=== PATIENT | male | born 1950 | race Caucasian/White ===

== ENCOUNTER → 2020-10-09 | Outpatient (CLI) | payer MEDICARE, OTHER ==
[~2020-10-09] MED LIST: ATEN50 PO; CYCL10 PO; FLUSAL2505 IH; GABA600 PO; LEVE500 PO; LORA.5 PO; LOVA40; TAMS.4ER PO; TIOT18 IH; VALS80 PO
[2020-10-09 18:35] LABS: Microalb/Creat Ratio UR, Rand Unable to Calculate mg/g (0.000-30.000); Microalbumin, Random Urine <5.000 mg/L (0.000-20.000)
== END ==
LOC: LAB 15:19 → LAB SHORT 15:19
PROVIDERS: Physician Assistant
DX: E11.9 Type 2 diabetes mellitus without complications (principal)
CPT/HCPCS: 82043; 82570